=== PATIENT | female | born 1975 | race Caucasian/White ===

== ENCOUNTER 2016-05-17 19:56 | Emergency (ER) | payer OTHER ==
[~2016-05-17] VITALS: Ht 167.6 cm; Wt 75.5 kg
[~2016-05-17 19:56] MED LIST: ACYC400T84 PO; ALBU17AE; CLON0.12 PO; DOXY100T2 PO; FLUT1DIS22; SERT50TA6 PO
[2016-05-17 20:10] VITALS: Ht 167.6 cm; Wt 75.5 kg
[2016-05-17] MEDS ORDERED: ERYTOPOI RIGHT EYE (21:24)
[2016-05-17] MEDS ORDERED: PRED20TA PO (21:24)
--- NOTE | 2016-05-17 21:27 | ERD ---
ER Documentation Chief Complaint Date/Time DATE: 05/17/16 TIME: 21:24 Chief Complaint left eye swelling x 2 hrs, no vision changes HPI Patient is a 41-year-old female who presents with swelling in her right eye after she wiped her face with a towel it just came out of the dryer. She states after that her eyes got puffy and her eyes are now watery and slightly irritated. She denies any changes to her vision, photosensitivity, double vision or very blurry vision. Denies fever. Denies any drainage from her eye. ROS All systems reviewed and are negative except as per history of present illness. Medications Home Meds Active Scripts Prednisone* (Prednisone*) 20 Mg Tab, 40 MG PO DAILY for 4 Days, TAB Prov:SALLY BHARDWAJ PA-C 05/17/16 Erythromycin* (Erythromycin* Ophthalmic) 1 Applic Oint, 1 APPLIC RIGHT EYE QID for 7 Days Prov:SALLY BHARDWAJ PA-C 05/17/16 Acyclovir* (Zovirax*) 400 Mg Tab, 400 MG PO TID for 7 Days Prov:KATY FAULKNER [employer] 04/03/14 Doxycycline* (Vibramycin*) 100 Mg Tab, 100 MG PO BID for 7 Days, TAB Prov:KATY FAULKNER [employer]IC 04/03/14 Reported Medications Clonazepam (Klonopin) 0.125 Mg/Tab Tab.rapdis, 0.125 MG PO BID 08/20/11 Sertraline Hcl* (Sertraline Hcl*) 50 Mg Tablet, 50 MG PO DAILY 08/26/10 Fluticasone/Salmeterol (Advair 100-50 Diskus) 1 Disk W/Dev Disk.w.dev 07/29/09 Albuterol (Albuterol) 17 Gm Aer.refill 07/29/09 Allergies Allergies: Coded Allergies: Sulfa (Sulfonamide Antibiotics) (Verified Allergy, Unknown, THROAT SWELLING, 04/01/14) PMhx/Soc History of Surgery: No Anesthesia Reaction: No Hx Neurological Disorder: Yes (manic depression) Hx Respiratory Disorders: Yes (Asthma) Hx Cardiac Disorders: No Hx Miscellaneous Medical Probl: No Hx Alcohol Use: No Hx Substance Use: No Hx Tobacco Use: Yes (1 pack of cigaretts) Smoking Status: Current every day smoker FmHx Family History: No diabetes Physical Exam Vitals Vital Signs Date Time Temp Pulse Resp B/P Pulse Ox O2 Delivery O2 Flow Rate FiO2 05/17/16 20:10 97.1 99 17 139/62 98 Physical Exam General: well developed, well nourished, alert, nontoxic, no distress Head: normocephalic, atraumatic Eyes: PERRL, right eyes mildly injected, no hyphema, no ptosis, mild periorbital swelling without any erythema or warmth, extraocular movements intact Neck: Supple, nontender, no lymphadenopathy, no midline tenderness Respiratory: Clear to auscaultation bilaterally, speaks in full sentences, no use of accesory muscles or labored breathing, no rales, ronchi, or wheezing Cardiovascular: RRR, No murmurs Procedures/MDM Patient presents with right eye irritation and swelling after wiping her eye with a towel. This most likely allergic reaction. No signs of anaphylaxis. No respiratory distress or swelling of the lips or tongue. No evidence of orbital or periorbital cellulitis. Visual acuity is normal. She is well- appearing in no distress. She is discharged with short course of prednisone and erythromycin ophthalmic ointment. Recommended this patient follow up with her primary care doctor within 48 hours or return to the emergency room for any worsening of symptoms. However this time I do believe there is suitable for outpatient management. I answered all their questions and they agreed with the plan and were discharged home. Departure Diagnosis: Primary Impression: Allergic reaction Condition: Stable Patient Instructions: Allergic Reaction, Other (General) Additional Instructions: Call your primary care doctor TOMORROW for an appointment during the next 1-2 days.See the doctor sooner or return here if your condition worsens before your appointment time. SALLY BHARDWAJ PA-C May 17, 2016 21:27
== END 2016-05-17 21:39 | disposition home or self-care (01) ==
LOC: FTE 19:56
DX: H02.843 Edema of right eye, unspecified eyelid (principal); J45.909 Unspecified asthma, uncomplicated; F17.210 Nicotine dependence, cigarettes, uncomplicated
CPT/HCPCS: 99284